=== PATIENT | female | born 1985 | race Caucasian/White ===

== ENCOUNTER 2016-11-25 10:24 | Outpatient (CLI) | payer BC ==
[2016-11-25 11:14] LABS: Mean Corpuscular HGB CONC 33.6 g/dL (32.0-36.0); Mean Corpuscular Hemoglobin 31.1 pg (27.0-31.0); Mean Corpuscular Volume 92.5 fl (81.0-99.0); Mean Platelet Volume 6.1 fL (7.4-10.4); Platelet Count 238 thou/uL (130-400); RBC Distribution Width 11.8 % (11.5-14.5); Red Blood Cell (RBC) Count 4.51 mill/uL (4.20-5.40); White Blood Cell (WBC) Count 4.7 thou/uL (4.8-10.8)
[2016-11-25 12:09] LABS: ALT (SGPT) 23 U/L (8-55); AST (SGOT) 18 U/L (5-34); Albumin 4.3 g/dL (3.5-5.0); Alkaline Phosphatase 54 U/L (40-150); Anion Gap 12 mmol/L (10-20); BUN (Urea Nitrogen) 13 mg/dL (7.0-18.7); Bilirubin, Total 0.4 mg/dL (0.2-1.2); Calc. Creatinine Clearance 0 mL/min (70-130); Calcium 9.3 mg/dL (7.8-10.44); Carbon Dioxide 25 mmol/L (22-29); Cardiac Risk 2.4 (Less than 4.5); Chloride 109 mmol/L (98-107); Cholesterol 221 mg/dl (< 200 Desired); Estimated GFR-MDRD 85; Globulin 2.1 g/dL (2.4-3.5); Glucose 87 mg/dL (70-105); HDL Cholesterol 94 mg/dL (>60 Neg Risk); LDL Cholesterol, Calculated 117 mg/dL; Potassium 4.7 mmol/L (3.5-5.1); Protein, Total 6.4 g/dL (6.0-8.3); Sodium 141 mmol/L (136-145); Triglycerides 50 mg/dL (Less than 150)
[2016-11-25 12:27] LABS: Thyroid Stimulating Hormone 0.8807 uIU/mL (0.35-4.94); Vitamin D, 25 Hydroxy 44.3 ng/ml (> 30.0)
== END 2016-11-25 10:25 | disposition home or self-care (01) ==
LOC: BURLAB 10:24
PROVIDERS: ATTEND Psychiatry & Neurology Child & Adolescent Psychiatry
DX: T88.7XXA Unspecified adverse effect of drug or medicament, initial encounter (principal)
CPT/HCPCS: 36415; 80053; 80061; 82306; 84443; 85027